=== PATIENT | female | born 1960 | race Caucasian/White ===

== ENCOUNTER 2017-11-04 07:24 | Day surgery (SDC) | payer BC ==
[~2017-11-04 07:24] MED LIST: Midazolam 1 MG/ML 2 ML SDV ONE; fentaNYL 100 MCG/2 ML SDV ONE
[2017-11-04] MEDS ORDERED: fentaNYL 100 MCG/2 ML SDV IV ONE ×3 (07:25→09:11)
[2017-11-04] MEDS ORDERED: Midazolam 1 MG/ML 2 ML SDV IV ONE ×4 (07:25→09:09)
[2017-11-04] MEDS ORDERED: Lactated Ringers 1,000 ML IV SCH (07:45)
--- NOTE | 2017-11-04 11:15 | OR ---
DATE: 11/04/2017 PREOPERATIVE DIAGNOSIS: Screening colonoscopy. POSTOPERATIVE DIAGNOSIS: Screening colonoscopy. PROCEDURE: Total colonoscopy. ANESTHESIA: Conscious sedation with IV Versed and fentanyl. SPECIMEN: None. OPERATIVE FINDINGS: Normal colonoscopy. RECOMMENDATION: Followup screening colonoscopy in 10 years. INDICATION FOR PROCEDURE: This 57-year-old female presents for screening colonoscopy. She has not had any prior exams. She has no particular bowel function change or family history. PROCEDURE IN DETAIL: After adequate preparation, a colonoscope was inserted into the rectum. This was easily passed all the way to the cecum. Confirmation of the cecum was made by visualization of the ileocecal valve, palpation in the right lower quadrant, and a light shining through the right lower quadrant. The bowel prep was good on withdrawal of the scope. There were no abnormalities. Anal and rectal examination were also normal. Air was suctioned from the colon, and the scope was removed. [facility] /[id number]
== END 2017-11-04 11:21 | disposition home or self-care (01) ==
LOC: DL.ENDO 07:24
PROVIDERS: ATTEND Surgery
DX: Z12.11 Encounter for screening for malignant neoplasm of colon (principal); F17.210 Nicotine dependence, cigarettes, uncomplicated; Z79.899 Other long term (current) drug therapy; Z95.810 Presence of automatic (implantable) cardiac defibrillator; Z80.0 Family history of malignant neoplasm of digestive organs
CPT/HCPCS: 45378; J2250; J3010; J7120

== ENCOUNTER 2020-10-18 13:17 | Emergency (ER) | payer OTHER ==
--- NOTE | 2020-10-18 14:13 | CR ---
PROCEDURE INFORMATION: Exam: XR Chest Exam date and time: 10/18/2020 1:58 PM Age: 60 years old Clinical indication: Pain; Chest pressure TECHNIQUE: Imaging protocol: XR of the chest Views: 1 view. COMPARISON: CT Chest w Cont 06/25/2015 10:19 AM FINDINGS: Lungs: Lungs hyperexpanded. Indwelling pacemaker with dual chamber electrodes. Pleural spaces: Unremarkable. No pleural effusion. No pneumothorax. Heart/Mediastinum: Unremarkable. No cardiomegaly. Bones/joints: Unremarkable. IMPRESSION: No acute findings
[2020-10-18 14:23] LABS: ANION GAP 12.5 mEq/L (7-13)
[2020-10-18] MEDS ORDERED: Aspirin 81 MG Tab.Chew PO ONE (14:43)
--- NOTE | 2020-10-18 14:55 | EDM.PDOC ---
ED HPI GENERAL MEDICAL PROBLEM - General Chief Complaint: Respiratory Problem Stated Complaint: SHORTNESS OF BREATH HAS PACEMAKER Time Seen by Provider: 10/18/20 14:15 Source of Information: Reports: Patient History Limitations: Reports: No Limitations - History of Present Illness INITIAL COMMENTS - FREE TEXT/NARRATIVE: This 60 yo female patient presented to the ED due to increased shortness of breath that started this morning. The patient did contact her primary care facility and was advised to come to the ED for further evaluation and management. The patient reports she has had her pacemaker checked and was advised that everything with her pacemaker is working well, but was also advised that she may have some retained fluid. The patient reports all of her symptoms had resolved prior to presentation in the ED. The patient reports she is normally a daily drinker (2 drinks per night), but did not have any alcohol last night. The patient reports she is a frequent smoker and has no plans on quitting. Onset: Today Duration: Hour(s):, Improving Location: Reports: Chest Quality: Reports: Other Severity: Mild Improves with: Reports: None Worsens with: Reports: None Context: Reports: Activity Associated Symptoms: Reports: Shortness of Breath - Related Data Allergies Allergy/AdvReac Type Severity Reaction Status Date / Time No Known Allergies Allergy Verified 10/18/20 13:35 Home Meds: Home Meds Methotrexate Sodium [Methotrexate] 6 tab PO ASDIRECTED 06/23/15 [History] Folic Acid 1 tab PO DAILY 11/03/17 [History] Lisinopril 1 tab PO DAILY 11/03/17 [History] carvediloL [Carvedilol] 1 tab PO DAILY 11/03/17 [History] traMADol [Ultram] 2 tab PO BID 11/03/17 [History] Adalimumab [Humira(Cf) Pen] 0.4 ml SUBCUT ASDIRECTED 10/18/20 [History] Cyanocobalamin (Vitamin B-12) [Cyanocobalamin Injection] 1,000 mcg SUBCUT ASDIRECTED 10/18/20 [History] Past Medical History HEENT History: Reports: None Cardiovascular History: Reports: Pacemaker Respiratory History: Reports: None Gastrointestinal History: Reports: None Genitourinary History: Reports: None 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: , Spontaneous Musculoskeletal History: Reports: RA Neurological History: Reports: None Psychiatric History: Reports: None Endocrine/Metabolic History: Reports: None Hematologic History: Reports: None Immunologic History: Reports: None Oncologic (Cancer) History: Reports: None Dermatologic History: Reports: None - Infectious Disease History Infectious Disease History: Reports: Chicken Pox Other Infectious Disease History: unknown - Past Surgical History HEENT Surgical History: Reports: Adenoidectomy, Tonsillectomy Cardiovascular Surgical History: Reports: None GI Surgical History: Reports: Appendectomy Female Surgical History: Reports: None Musculoskeletal Surgical History: Reports: None Social & Family History - Tobacco Use Tobacco Use Status *Q: Current Every Day Tobacco User Years of Tobacco use: 25 Packs/Tins Daily: 1 Second Hand Smoke Exposure: No - Caffeine Use Caffeine Use: Reports: Coffee, Soda Caffeine Use Comment: 4 cups daily - Recreational Drug Use Recreational Drug Type: Reports: Marijuana/Hashish ED ROS GENERAL - Review of Systems Review Of Systems: Comprehensive ROS is negative, except as noted in HPI. ED EXAM, GENERAL - Physical Exam Exam: See Below Exam Limited By: No Limitations General Appearance: Alert, WD/WN, No Apparent Distress Eye Exam: Bilateral Eye: EOMI, Normal Inspection, PERRL Ears: Normal External Exam, Normal Canal, Hearing Grossly Normal, Normal TMs Nose: Normal Inspection, Normal Mucosa, No Blood Throat/Mouth: Normal Inspection, Normal Lips, Normal Teeth, Normal Gums, Normal Oropharynx, Normal Voice, No Airway Compromise Head: Atraumatic, Normocephalic Neck: Normal Inspection, Supple, Non-Tender, Full Range of Motion Respiratory/Chest: No Respiratory Distress, Lungs Clear, Normal Breath Sounds, No Accessory Muscle Use, Chest Non-Tender Cardiovascular: Normal Peripheral Pulses, Regular Rate, Rhythm, No Edema, No Gallop, No JVD, No Murmur, No Rub GI/Abdominal: Normal Bowel Sounds, Soft, Non-Tender, No Organomegaly, No Distention, No Abnormal Bruit, No Mass (Female) Exam: Deferred Rectal (Female) Exam: Deferred Back Exam: Normal Inspection, Full Range of Motion, NT Extremities: Normal Inspection Neurological: Alert, Oriented, CN II-XII Intact, Normal Cognition, Normal Gait, Normal Reflexes, No Motor/Sensory Deficits Psychiatric: Normal Affect, Normal Mood Skin Exam: Warm, Dry, Intact, Normal Color, No Rash Lymphatic: No Adenopathy #1 Interpretation EKG Date: 10/18/20 Time: 13:44 Rhythm: Other (Paced rhythm) P-Wave: Present QRS: Normal ST-T: Normal QT: Normal Comparison: NA - No Prior EKG Course - Vital Signs Last Recorded V/S: Last Vital Signs Temp 36.3 C 10/18/20 13:26 Pulse 69 10/18/20 16:29 Resp 18 10/18/20 16:29 BP 161/65 H 10/18/20 16:29 Pulse Ox 99 10/18/20 16:29 - Orders/Labs/Meds Orders: Active Orders 24 hr Category Date Time Status EKG Documentation Completion [RC] STAT Care 10/18/20 13:41 Active EKG Documentation Completion [RC] URGENT Care 10/18/20 18:00 Active CULTURE BLOOD [BC] Stat Lab 10/18/20 13:55 Received DRUG SCREEN URINE BIORAD [URCHEM] Stat Lab 10/18/20 13:41 Ordered UA RFX JAD AND CULT IF INDIC [URIN] Urgent Lab 10/18/20 13:41 Ordered Labs: Laboratory Tests 10/18/20 10/18/20 10/18/20 Range/Units 13:55 13:55 13:55 WBC 6.4 (5.0-10.0) 10^3/uL RBC 4.17 L (4.2-5.4) 10^6/uL Hgb 15.3 (12.0-16.0) g/dL Hct 44.5 (37.0-47.0) % MCV 106.7 H (80-100) fL MCH 36.7 H (27.0-34.0) pg MCHC 34.4 (33.0-35.0) g/dL Plt Count 207 (150-450) 10^3/uL Neut % (Auto) 61.3 (42.2-75.2) % Lymph % (Auto) 30.8 (20.5-50.1) % Douglas % (Auto) 5.9 (2-8) % Eos % (Auto) 1.7 (1.0-3.0) % Baso % (Auto) 0.3 (0.0-1.0) % Sodium 140 (136-145) mmol/L Potassium 3.5 (3.5-5.1) mmol/L Chloride 104 (98-107) mmol/L Carbon Dioxide 27 (21-32) mmol/L Anion Gap 12.5 (7-13) mEq/L BUN 10 (7-18) mg/dL Creatinine 1.04 H (0.55-1.02) mg/dL Est Cr Clr Drug Dosing 54.52 mL/min Estimated GFR (MDRD) 54 BUN/Creatinine Ratio 9.6 (No establ ref range) Glucose 137 H (74-99) mg/dL Lactic Acid 1.6 (0.4-2.0) mmol/L Calcium 8.5 (8.5-10.1) mg/dL Total Bilirubin 1.2 H (0.2-1.0) mg/dL AST 41 H (15-37) U/L ALT 30 (14-59) U/L Alkaline Phosphatase 108 (46-116) U/L Troponin I 0.054 (0.000-0.056) ng/mL B-Natriuretic Peptide (0-100) pg/ml Total Protein 7.2 (6.4-8.2) g/dL Albumin 3.4 (3.4-5.0) g/dL Globulin 3.8 Albumin/Globulin Ratio 0.9 10/18/20 10/18/20 Range/Units 13:55 18:00 WBC (5.0-10.0) 10^3/uL RBC (4.2-5.4) 10^6/uL Hgb (12.0-16.0) g/dL Hct (37.0-47.0) % MCV (80-100) fL MCH (27.0-34.0) pg MCHC (33.0-35.0) g/dL Plt Count (150-450) 10^3/uL Neut % (Auto) (42.2-75.2) % Lymph % (Auto) (20.5-50.1) % Douglas % (Auto) (2-8) % Eos % (Auto) (1.0-3.0) % Baso % (Auto) (0.0-1.0) % Sodium (136-145) mmol/L Potassium (3.5-5.1) mmol/L Chloride (98-107) mmol/L Carbon Dioxide (21-32) mmol/L Anion Gap (7-13) mEq/L BUN (7-18) mg/dL Creatinine (0.55-1.02) mg/dL Est Cr Clr Drug Dosing mL/min Estimated GFR (MDRD) BUN/Creatinine Ratio (No establ ref range) Glucose (74-99) mg/dL Lactic Acid (0.4-2.0) mmol/L Calcium (8.5-10.1) mg/dL Total Bilirubin (0.2-1.0) mg/dL AST (15-37) U/L ALT (14-59) U/L Alkaline Phosphatase (46-116) U/L Troponin I 0.057 H* (0.000-0.056) ng/mL B-Natriuretic Peptide 49 (0-100) pg/ml Total Protein (6.4-8.2) g/dL Albumin (3.4-5.0) g/dL Globulin Albumin/Globulin Ratio Meds: Medications Discontinued Medications Generic Name Dose Route Start Last Admin Trade Name Freq PRN Reason Stop Dose Admin Aspirin 324 mg 10/18/20 14:43 10/18/20 14:47 Aspirin 81 Mg Tab.Chew PO 10/18/20 14:44 324 mg ONETIME ONE Administration Departure - Departure Time of Disposition: 18:48 Disposition: Home, Self-Care 01 Condition: Fair Clinical Impression: Nonspecific chest pain - Discharge Information *PRESCRIPTION DRUG MONITORING PROGRAM REVIEWED*: Not Applicable *COPY OF PRESCRIPTION DRUG MONITORING REPORT IN PATIENT JOANNE: Not Applicable Forms: ED Department Discharge Care Plan Goals: The patient was advised of the examination, lab, EKG, x-ray, repeat EKG and Repeat lab results during the visit. The patient was encouraged to continue to follow the advice from her primary care facility. If the patient has any additional symptoms or concerns, the patient should either return to the emergency department or visit her primary care facility. Sepsis Event Note (ED) - Evaluation Sepsis Screening Result: No Definite Risk - Focused Exam Vital Signs: Vital Signs Temp Pulse Resp BP Pulse Ox 10/18/20 16:29 69 18 161/65 H 99 10/18/20 13:26 36.3 C 94 16 141/62 H 100 - My Orders Last 24 Hours: My Active Orders 10/18/20 13:41 EKG Documentation Completion [RC] STAT DRUG SCREEN URINE BIORAD [URCHEM] Stat UA RFX JAD AND CULT IF INDIC [URIN] Urgent 10/18/20 13:55 CULTURE BLOOD [BC] Stat 10/18/20 18:00 EKG Documentation Completion [RC] URGENT - Assessment/Plan Last 24 Hours: My Active Orders 10/18/20 13:41 EKG Documentation Completion [RC] STAT DRUG SCREEN URINE BIORAD [URCHEM] Stat UA RFX JAD AND CULT IF INDIC [URIN] Urgent 10/18/20 13:55 CULTURE BLOOD [BC] Stat 10/18/20 18:00 EKG Documentation Completion [RC] URGENT
== END 2020-10-18 19:00 | disposition home or self-care (01) ==
LOC: DL.ED 13:17
DX: R07.9 Chest pain, unspecified (principal); F17.200 Nicotine dependence, unspecified, uncomplicated; Z95.0 Presence of cardiac pacemaker; Z79.899 Other long term (current) drug therapy
CPT/HCPCS: 36415; 71045; 80053; 83605; 83880; 84484; 85025; 87040; 93005; 99285; A9270; 93010; 99284